=== PATIENT | male | born 1985 ===

== ENCOUNTER 2024-09-24 15:43 | Emergency (ER) | payer OTHER, SELFPAY ==
[2024-09-24 16:12] VITALS: BP 123/80; PULSE 71; RESP 18; TEMP 36.8; O2SAT 97; BMI 33.0
--- NOTE | 2024-09-24 16:12 | ED.SKABFB ---
HPI - Skin/Abscess/Foreign Bdy General Chief complaint: Wound/Laceration Stated complaint: cyst behind neck Time Seen by Provider: 09/24/24 16:18 Source: patient Mode of arrival: ambulatory Limitations: no limitations History of Present Illness HPI narrative: Patient is a 38-year-old male who presents emergency department for evaluation of an abscess to his upper back/lower neck. Onset 2 days ago. He attempted to drain it at home but still continued to feel there was more in there. He admits to a history of 1 a few years ago in a similar location. Denies fevers or chills. No significant pain. Does not believe he was bit by anything. Related Data Previous Rx's ?Medication ?Instructions ?Recorded cephalexin 500 mg capsule 500 mg PO QID #28 caps 09/24/24 Allergies Allergy/AdvReac Type Severity Reaction Status Date / Time No Known Allergies Allergy Verified 09/24/24 16:17 [No Known Allergies*] Review of Systems Review of Systems: Yes all other systems are reviewed and are negative PMFSH Past Medical History Attestation statement: The following information was validated with the patient. Source: old records reviewed Physical Exam Vital Signs: Vital Signs: Last Vital Signs Temp 98.2 F 09/24/24 16:12 Pulse 71 09/24/24 16:12 Resp 18 09/24/24 16:12 BP 123/80 09/24/24 16:12 Pulse Ox 97 09/24/24 16:12 O2 Del Method Room Air 09/24/24 16:12 BMI result Body Mass Index 33.0 Appearance: Alert.?Oriented to person, place and time. No acute distress.?Normal affect. Neck: Normal inspection.? Neck supple.??No cervical adenopathy. Full range of motion. CVS: Heart sounds normal. Normal heart rate and rhythm.? Pulses normal.?? Respiratory: No respiratory distress.? Lung sounds clear to auscultation bilaterally?? Skin: Skin warm and dry.? Normal skin color.? Left lower lateral neck abscess erythematous with central fluctuance, actively draining, mild surrounding erythema. ? Neuro: Moves all extremities spontaneously. Sensation intact bilaterally. Ambulates with normal steady gait. Course Course Course Narrative: History physical exam consistent with abscess. No systemic toxicity, and patient is well-appearing. There is surrounding cellulitis. Not consistent with necrotizing fasciitis, myositis, DVT, osteomyelitis. _ patient is now status post incision and drainage of abscess and tolerated the procedure well. No complications. No labs or imaging indicated at this time. Will discharge home with course of oral antibiotics and symptomatic treatment instructions. Discussed reasons to return to the emergency department, and follow-up with primary care provider. Patient agreeable with plan of care. Medical Decision Making Medical Decision Making [facility] Narrative: Patient is a 38-year-old male presents emergency department for evaluation of an abscess to his upper back/lower neck as per HPI. History physical exam consistent with actively draining abscess mild surrounding cellulitis. Was able to manually express approximately 5 mL of purulence. No systemic toxicity, and patient is well-appearing. There is surrounding cellulitis. Not consistent with necrotizing fasciitis, myositis, DVT, osteomyelitis. patient is now status post drainage of abscess and tolerated well. No complications. No labs or imaging indicated at this time. Will discharge home with course of oral antibiotics and symptomatic treatment instructions. Discussed reasons to return to the emergency department, and follow-up with primary care provider. Patient agreeable with plan of care. Differential Diagnosis Differential Diagnoses: The differential diagnosis associated with the presentation includes (See narrative above) External Record Review External record reviewed: Outpatient record Prescription Management I considered prescription management with: Pain Medication and Antibiotic Discharge Plan Discharge Clinical Impression: Abscess of back Patient Disposition: Home, Self-Care Instructions: Abscess (ED) Additional Instructions: As discussed apply warm moist compresses or signaling project engineer a warm/hot shower for 10-15 minutes at least 3 times daily, if they are begins to be any pus building up again you may try to manually expresses. Complete the entire course of antibiotics as prescribed. Do not skip any doses or stopped taking it early even if you begin to feel better. You may alternate between Tylenol and ibuprofen as needed for pain. Return to emergency department any new or worsening symptoms or concerns. Follow-up with your primary care doctor as needed. Prescriptions: New cephalexin 500 mg capsule 500 mg PO QID Qty: 28 0RF Referrals: Physician,None [Primary Care Provider] - Print Language: Setswana
[2024-09-24 16:27] VITALS: BP 123/80; PULSE 71; RESP 18; TEMP 36.8; O2SAT 97
== END 2024-09-24 16:31 | disposition home or self-care (01) ==
LOC: HO.ED 16:22
PROVIDERS: Emergency Provider Emergency Medicine
DX: L02.212 Cutaneous abscess of back [any part, except buttock and flank] (principal)
CPT/HCPCS: 10060; 99282; 99284

== ENCOUNTER 2025-08-16 13:44 | Emergency (ER) | payer SELFPAY ==
--- NOTE | ~2025-08-16 | XR_ITS ---
CLINICAL HISTORY: trauma 2 view left tibia-fibula Comparison: None provided Findings No fractures or dislocations. No joint effusion. No significant arthritic change. No radiopaque foreign body. IMPRESSION: 1. Normal left tibia-fibula This document has been electronically signed by: Sophie Lanza MD on 08/16/2025 18:45:43
--- NOTE | ~2025-08-16 | US_ITS ---
EXAMINATION: US TRIPLEX LOWER EXTREMITY, LEFT CLINICAL INFORMATION: Left lower extremity pain COMPARISON: None available. TECHNIQUE: Color-flow triplex imaging with spectral analysis and compression Doppler were performed on the left lower extremity. FINDINGS: Respiratory variation, normal compression and augmented flow are noted throughout the left lower extremity. The visualized common femoral vein, superficial femoral vein, profunda femoral vein, popliteal vein and midcalf peroneal and posterior tibial venous segments show no evidence of deep venous thrombosis. US/US venous duplex LE LT IMPRESSION: No evidence of deep venous thrombosis involving the left lower extremity. Electronically signed by: Michael Kwok MD 08/16/2025 05:10 PM EDT
[2025-08-16 14:39] VITALS: BP 138/83; PULSE 93; RESP 16; TEMP 36.8; O2SAT 98; BMI 30.9
--- NOTE | 2025-08-16 14:53 | ED.LOWEXIN ---
HPI - Extremity Injury (Lower) General Chief Complaint: Extremity Injury, Lower Stated Complaint: leg inj post fall Time Seen by Provider: 08/16/25 17:44 Source: patient, RN notes reviewed and old records reviewed Mode of arrival: ambulatory Limitations: no limitations History of Present Illness ED Provider: Ting BLANK Narrative: 39-year-old male presents for evaluation of left leg pain. Patient reports that yesterday he tripped over a tow hitch and his foot was caught stuck underneath in his leg fell backwards. He landed on his left calf Denies hitting his head or losing consciousness. He has pain to the left calf that is worsening today. He reports using icy hot and ice. He reports the swelling has improved and the calf does not feel as hard as it did this morning He is able to walk with some discomfort He denies any pain in the ankle or foot He describes his pain as 10/10. Denies any other injuries No other complaints or concerns at this time Related Data Previous Rx's ?Medication ?Instructions ?Recorded cephalexin 500 mg capsule 500 mg PO QID #28 caps 09/24/24 ibuprofen 600 mg tablet 600 mg PO Q8H PRN pain #20 tabs 08/16/25 Allergies Allergy/AdvReac Type Severity Reaction Status Date / Time No Known Allergies (No Known Allergy Verified 08/16/25 14:45 Allergies*) Review of Systems Constitutional: Constitutional: Denies body ache(s), Denies chills, Denies fever(s) and Denies headache(s) Eyes: Eyes: Denies blurry vision ENT: Denies headache(s) Cardiovascular: Cardiovascular: Denies chest pain Gastrointestinal: Gastrointestinal: Denies abdominal pain, Denies nausea and Denies vomiting Musculoskeletal: Musculoskeletal: Denies arthralgias, Denies joint swelling and Reports muscle cramps Comments: Left calf pain Integumentary/Breasts: Skin/Breast: Denies rash Neurologic: Denies headache(s) Psychiatric: Psychiatric: Denies anxiety PMFSH Social History Social History Advance Directives: No Advance Directives Information Provided: Yes Do you have a plan to hurt others: No Plan Physical Exam Vital Signs: Vital Signs: Last Vital Signs Temp 98.3 F 08/16/25 14:39 Pulse 93 08/16/25 14:39 Resp 16 08/16/25 14:39 BP 138/83 08/16/25 14:39 Pulse Ox 98 08/16/25 14:39 O2 Del Method Room Air 08/16/25 14:39 BMI result Body Mass Index 30.9 Const: General: healthy appearing, comfortable, no acute distress, alert and awake Nutritional Appearance: well nourished Orientation/consciousness: patient oriented x3 HEENT: Head: Yes normocephalic and Yes atraumatic Neck: Neck: Yes full ROM Resp: Effort & Inspection: normal respiratory effort, able to speak in complete sentences and not labored Skin: General skin exam: elasticity normal Neuro: General: patient oriented x3 Cranial nerves: Yes Bilaterally intact EOM present Cognition (Neuro): normal cognition Extrem: Other: There were no open wounds, erythema, ecchymosis to left lower extremity. There is some tenderness to the left mid to upper calf. This area is firm to palpation. He is able to flex and extend the knee and the ankle without too much difficulty. There was no tenderness over the Achilles tendon. No tenderness to a left lateral or medial malleolus. I was able to palpate pedal pulses in the left. Distal sensation and capillary refill remains intact. Course Course Course Narrative: This is an RME: Additional HPI, ROS, PE not included below will be deferred to primary provider. RME assessment and note performed by: Ladonna Ge PA-C This is a 39-year-old male who presents emergency department with complaints of left calf pain. Patient states that yesterday his leg was trapped in between 2 pieces of metal. Today he reports his left calf is hard. On examination, tenderness palpation along the left calf, no open wounds or lacerations, no overlying erythema, calf does feel indurated. Plan: US, further ER eval needed Medications Administered Discontinued Medications Generic Name Dose Route Start Last Admin Trade Name Freq PRN Reason Stop Dose Admin Ibuprofen 600 mg 08/16/25 18:22 08/16/25 18:37 Ibuprofen 600 Mg Tablet PO 08/16/25 18:23 600 mg ONCE ONE Administration Medical Decision Making Medical Decision Making [facility] Narrative: 39-year-old male presents for evaluation of left leg pain. He reports tripping yesterday and falling backwards over a tow hitch. He landed on his left calf. He has some pain, tenderness with firmness and induration to left calf, I suspect this is from a hematoma. He has no Achilles tenderness. He is able to flex and extend the knee and ankle. An ultrasound was ordered that rules out DVT. I have a very low suspicion for compartment syndrome as the patient is quite comfortable, has full range of motion, positive pedal pulses. We will get an x-ray to evaluate for fracture of the fibula as his pain does seem somewhat favored to the lateral side. I have a lower suspicion for internal derangement of the left knee as there was not significant discomfort in the knee. If the x-ray is negative, he can likely be discharged with symptomatic care. Differential Diagnosis Differential Diagnoses: The differential diagnosis associated with the presentation includes Hematoma DVT Leg fracture Contusion Independent Interpretation I performed an independent interpretation of an: Plain X-Ray Interpretation: No obvious fracture Radiology Impression Discussion of test interpretation with radiology: I have reviewed the radiologist's reading. Radiologist Impression: FINDINGS: Respiratory variation, normal compression and augmented flow are noted throughout the left lower extremity. The visualized common femoral vein, superficial femoral vein, profunda femoral vein, popliteal vein and midcalf peroneal and posterior tibial venous segments show no evidence of deep venous thrombosis. US/US venous duplex LE LT IMPRESSION: No evidence of deep venous thrombosis involving the left lower extremity. Electronically signed by: Michael Kwok MD 08/16/2025 05:10 PM EDT Findings No fractures or dislocations. No joint effusion. No significant arthritic change. No radiopaque foreign body. IMPRESSION: 1. Normal left tibia-fibula This document has been electronically signed by: Sophie Lanza MD on 08/16/2025 18:45:43 Discharge Plan Discharge Clinical Impression: Hematoma of left lower leg Patient Disposition: Home, Self-Care Instructions: Contusion in Adults (ED) Additional Instructions: Your ultrasound did not show any evidence of DVT. Your x-ray did not show any fractures. Your pain is most likely from a hematoma. Continue ibuprofen as needed for pain, ice the leg and elevated above your heart while resting Return if you develop significantly worsening pain, if you are unable to move your toes or the become discolored Prescriptions: New ibuprofen 600 mg tablet 600 mg PO Q8H PRN (Reason: pain) Qty: 20 0RF No Action cephalexin 500 mg capsule 500 mg PO QID Qty: 28 0RF Print Language: Cypriot
[2025-08-16 19:00] VITALS: BP 138/83; PULSE 93; RESP 16; TEMP 36.8; O2SAT 98
== END 2025-08-16 19:00 | disposition home or self-care (01) ==
PROVIDERS: Emergency Provider Student in an Organized Health Care Education/Training Program
DX: S80.12XA Contusion of left lower leg, initial encounter (principal); W01.0XXA Fall on same level from slipping, tripping and stumbling without subsequent striking against object, initial encounter; Y93.9 Activity, unspecified; Y92.9 Unspecified place or not applicable; Y99.9 Unspecified external cause status; M79.605 Pain in left leg
CPT/HCPCS: 73590; 93971; 99283; 99284

== ENCOUNTER → 2025-08-16 14:53 | Outpatient (BNV) | payer SELFPAY | PROVIDERS: Visit Provider Radiology Diagnostic Radiology | DX: M79.662 Pain in left lower leg (principal); S80.12XA Contusion of left lower leg, initial encounter; W22.8XXA Striking against or struck by other objects, initial encounter | CPT/HCPCS: 73590; 93971 ==